=== PATIENT | male | born 2000 | race Caucasian/White ===

== ENCOUNTER 2021-04-17 00:47 | Emergency (ER) | payer MEDICAID, SELFPAY ==
[2021-04-17 00:58] VITALS: BP 135/87; PULSE 96; RESP 18; TEMP 36.2; O2SAT 98; BMI 26.4
--- NOTE | 2021-04-17 01:01 | ED_ITS ---
HPI - Psych General Stated Complaint: psychosis & bipolar diagnoses, mental break Time Seen by Provider: 04/17/21 00:56 Source: patient Mode of arrival: ambulatory Limitations: no limitations History of Present Illness HPI Narrative: Patient comes to emergency room complaining of vague suicidal ideation. Patient states that he has been previously diagnosed with unspecified psychosis, bipolar disorder. Patient takes medication and is complaining his meds. Patient was recently discharged from inpatient psych facility in [facility]. Patient states that he has vague thoughts of hurting herself and hurting others but he has no intention of acting on them. Patient states that marijuana worsens his symptoms. Patient states that he currently lives with his mother who gives him marijuana to chores. Patient states that the enabling behavior of his mother at home is an issue for him. Related Data Allergies Allergy/AdvReac Type Severity Reaction Status Date / Time No Known Allergies Allergy Verified 04/17/21 01:00 Review of Systems Review of Systems: Constitutional : No Weight loss, No Fever, No Chills, No Night Sweats, No Fatigue, No Malaise ENT/Mouth : No Hearing loss, No Ear Pain, No Nasal Congestion, No Sinus Pain, No Hoarseness, No sore throat, No Rhinorrhea, No Swallowing Difficulty Eyes: No Eye Pain, No Swelling, No Redness, No Foreign Body, No Discharge, No Vision Changes Cardiovascular : No Chest Pain, No SOB, No Dyspnea on Exertion, No Orthopnea, No Edema, No Palpitations Respiratory : No Cough, No Sputum, No Wheezing, No Smoke Exposure, No Dyspnea Gastrointestinal : No Nausea, No Vomiting, No Diarrhea, No Constipation, No abdominal Pain, No Hematochezia, No Melena Genitourinary : no irregular bleeding, No Dysuria, No Urinary Frequency, No Hematuria, No Urinary Incontinence, No Urgency, No Flank Pain, No Urinary Flow Changes, No Hesitancy Musculoskeletal : No joint pain, No Myalgias, No Joint Swelling Skin : No Skin Lesions, No rash Neuro : No Weakness, No Numbness, No Paresthesias, No Loss of Consciousness, No Dizziness, No Headache Psych : No Anxiety/Panic, No Depression, complaining of vague SI and HI, feeling paranoid Heme/Lymph: No Bruising, No Bleeding,No Lymphadenopathy Endocrine : No Polyuria, No Polydipsia, No Temperature Intolerance REPLACED BY [facility] Past Medical History Medical History (Updated 04/17/21 @ 01:06 by Danielle Lindsey MD) Bipolar disorder Unspecified psychosis Physical Exam Const: Other: Appearance: Alert. Oriented X3. No acute distress. Eyes: Pupils equal, round and reactive to light. ENT: Pharynx normal. Neck: Normal inspection. Neck supple. No lymph nodes noted. No crepitus CVS: Normal heart rate and rhythm. Pulses normal. Normal S1 and S2 Respiratory: No respiratory distress. Breath sounds normal. No Wheezing. No rales Abdomen: Soft and nontender. No rigidity. No distention. good BS x4 Skin: Skin warm and dry. Normal skin color. Normal skin turgor. Extremities: No lower extremity edema. No lower extremity edema. No Lacerations. No Rash Neuro: Oriented X 3. No motor deficit. No sensory deficit. Moving all extermities. No slurred speech. Cranial nerves 2-12 grossly intact Psych: Calm, cooperative, normal speech, coherent. Course Course Course Narrative: Patient states he is looking for more inpatient help. [facility] consult pending. Physician observation started at 01:00 Discharge Plan Discharge Clinical Impression: Suicidal ideation Patient Disposition: Still a Patient
[2021-04-17 01:27] LABS: Appearance Urine HAZY; Color Urine YELLOW; Glucose Urine UA NEG (NEG); Leukocyte Esterase Urine NEG (NEG); Nitrite Urine NEG (NEG); PH 6.5 (5.0-8.0); Specific Gravity - Urine 1.025 (1.005-1.025); Urine Blood NEG (NEG); Urine Ketones 15 MG/DL (NEG); Urine Protein NEG (NEG-TRACE)
[2021-04-17 01:34] LABS: COVID-19 Test Negative (Negative); IDNOW Serial# 9DD0AD1C
[2021-04-17 01:38] LABS: MANUAL DIFF FLAG NO
[2021-04-17 01:42] LABS: Basophils Percent Auto 0.2 % (0-2); Eosinophils Percent Auto 0.3 % (0-4); Hematocrit 44.3 % (42.0-52.0); Imm Gran Abs Auto 0.02 X10*3/uL (0.00-0.03); Imm Gran Pct Auto 0.3 % (0.0-0.4); Lymphocytes Absolute Auto 1.4 X10*3/uL (1.2-4.9); Lymphocytes Percent Auto 21.7 % (20-40); Mean Corpuscular HGB Conc 33.9 g/dl (31.0-36.0); Mean Corpuscular Hemoglobin 27.9 pg (27.0-33.0); Mean Corpuscular Volume 82.3 fL (80.0-98.0); Mean Platelet Volume 10.3 fL (9.4-12.4); Monocytes Absolute Auto 0.4 X10*3/uL (0.1-1.2); Monocytes Percent Auto 6.8 % (2-11); Neutrophils Absolute Auto 4.5 x10*3/uL (2.0-8.3); Neutrophils Percent Auto 70.7 % (45-73); Platelet Count 200 X10*3/uL (160-400); Red Blood Count 5.38 X10*6/uL (4.60-5.80); Red Cell Distribution Width 12.9 % (11.0-16.0); White Blood Count 6.4 X10*3/uL (4.8-10.8)
[2021-04-17 01:43] LABS: Amphetamine Screen Urine Not Detected (Not Detect); Barbiturates, Urine Not Detected (Not Detect); Benzodiazepines Screen Urine Not Detected (Not Detect); Cannabinoid Screen Urine POSITIVE (Not Detect); Cocaine Screen Urine Not Detected (Not Detect); Fentanyl, urine Not Detected (Not Detect); Opiate Screen Urine Not Detected (Not Detect); Phencyclidine Screen Urine Not Detected (Not Detect)
[2021-04-17 01:52] LABS: Ethanol < 10 mg/dL
[2021-04-17 01:53] LABS: Anion Gap 13 (12-20); Blood Urea Nitrogen 9 mg/dL (9-16); Calcium 9.1 mg/dL (8.4-10.2); Carbon Dioxide 26 mmol/L (22-29); Chloride 104 mmol/L (96-108); Creatinine Clr Calc Pharmacy 139.8; Estimated Glomerular Filt Rate > 60; Glucose Random 138 mg/dL (60-115); Potassium 3.5 mmol/L (3.3-5.1); Sodium 139 mmol/L (135-145)
[2021-04-17 02:00] LABS: Valproate 13.7 mcg/mL (50.0-100.0)
--- NOTE | 2021-04-17 06:35 | PC.NURSE ---
Patient slept through the night, no distress observed/reported, behavior appropriate and non concerning, med rec completed/pending provider's approval, [facility] referral completed/confirmed pending evaluation the morning, VSS, will continue to monitor.
--- NOTE | 2021-04-17 07:00 | PC.NURSE ---
patient appears to remain asleep at present respirations are even and unlabored, patient appears in no distress
--- NOTE | 2021-04-17 13:42 | MHC.CARE ---
Daria scheduled patient intake at [facility] for 3:30 today, their prescriber filled his Rx. Daria arranged for patient to be picked up by staff to bring patient to [address] [place] [address], however, patient said that he is more comfortable with his brother bringing him. Brother unable to get here in time, patient agreed to Lyft because it is more, anonymous. Ride scheduled for 2:30, patient understands that he has to go to the pharmacy (same address) then to respite, is going to call his brother to bring his belongings to respite later. This plan was coordinated with [facility] clinician, Danielle [phone]
== END 2021-04-17 14:27 ==
PROVIDERS: Emergency Provider Emergency Medicine; PCP Family Medicine
DX: F33.1 Major depressive disorder, recurrent, moderate (principal); R45.851 Suicidal ideations; Z79.899 Other long term (current) drug therapy; Z20.822 Contact with and (suspected) exposure to COVID-19
CPT/HCPCS: 36415; 80048; 80164; 80307; 81003; 82077; 85025; 87635; 99284